=== PATIENT | female | born 1950 | race Caucasian/White ===

== ENCOUNTER 2017-06-17 09:11 | Day surgery (SDC) | payer OTHER ==
[~2017-06-17 09:11] MED LIST: LIDOCAINE HCL 1% MPF SOL ONE; PROPOFOL 500 MG/50 ML EMU IV ONE
[2017-06-17 11:49] VITALS: BP 120/80; PULSE 70; RESP 20; TEMP 97.4; O2SAT 100
== END 2017-06-17 12:09 | disposition home or self-care (01) | DRG 951 ==
LOC: SURG 09:11
PROVIDERS: ATTEND Internal Medicine Gastroenterology
DX: Z12.11 Encounter for screening for malignant neoplasm of colon (principal); D12.2 Benign neoplasm of ascending colon; Z86.010 Personal history of colon polyps; Z80.0 Family history of malignant neoplasm of digestive organs; K57.30 Diverticulosis of large intestine without perforation or abscess without bleeding; K64.8 Other hemorrhoids
CPT/HCPCS: 99001; J2001; J2704

== ENCOUNTER 2018-01-29 11:27 | Outpatient (CLI) | payer MEDICARE, OTHER ==
[2017-06-17 11:49] VITALS: O2SAT 100
== END 2018-01-29 11:28 | disposition home or self-care (01) | DRG 554 ==
LOC: CONVCARE 11:27
PROVIDERS: ATTEND Orthopaedic Surgery
DX: M17.0 Bilateral primary osteoarthritis of knee (principal)
CPT/HCPCS: 73564

== ENCOUNTER 2018-03-12 05:23 | Inpatient (IN) | payer OTHER ==
[2018-03-12] MEDS ORDERED: LACTATED RINGERS 1,000 ML IV ONE (06:00)
[2018-03-12] MEDS: SCOPOLAMINE 1.5MG PATCH TD SCH (06:12)
[2018-03-12] MEDS ORDERED: LACTATED RINGERS 1,000 ML IV SCH (07:00)
[2018-03-12] MEDS ORDERED: SODIUM CHLORIDE 20 ML 20 ML ONE (07:04)
[2018-03-12] MEDS ORDERED: FENTANYL 100MCG/2ML SOL ONE (07:15)
[2018-03-12] MEDS ORDERED: DEXAMETHASONE 20 MG/5 ML (4 MG/ML SOL) ONE (07:15)
[2018-03-12] MEDS ORDERED: ONDANSETRON HCL 4 MG/2 ML SOL ONE (07:15)
[2018-03-12] MEDS ORDERED: MIDAZOLAM 2 MG/2 ML SOL ONE (07:15)
[2018-03-12] MEDS ORDERED: PROPOFOL 500 MG/50 ML EMU IV ONE (07:15)
[2018-03-12] MEDS ORDERED: METOCLOPRAMIDE HYDROCHLORIDE 5 MG/ML SOL ONE (07:15)
[2018-03-12] MEDS: TRANEXAMIC ACID 100 MG/ML SOL ONE ×2 (08:42→10:40)
[2018-03-12] MEDS ORDERED: PHENYLEPHRINE HYDROCHLORIDE 10 MG/ML SOL ONE (08:47)
[2018-03-12] MEDS: BUPIVACAINE LIPOSOME 20 ML SUS ONE ×4 (09:05→11:01)
[2018-03-12] MEDS ORDERED: PROPOFOL 10 MG/ML EMU IV ONE (10:33)
[2018-03-12] MEDS ORDERED: CEFAZOLIN SODIUM 1 GM PDS ONE ×3 (10:51→23:04)
[2018-03-12] MEDS ORDERED: SODIUM CHLORIDE 0.9% 500 ML 500 ML IV PRN (11:02)
[2018-03-12] MEDS ORDERED: ONDANSETRON 4 MG ODT BU PRN (11:02)
[2018-03-12] MEDS ORDERED: FLEET ENEMA PR PRN (11:02)
[2018-03-12] MEDS ORDERED: MORPHINE SULFATE 10 MG/ML SOL IV PRN (11:02)
[2018-03-12] MEDS ORDERED: BISACODYL 10 MG SUP PR PRN (11:02)
[2018-03-12] MEDS ORDERED: ALUMINUM/MAGNESIUM 30 ML SUS PO PRN (11:02)
[2018-03-12] MEDS ORDERED: ONDANSETRON HCL 4 MG/2 ML SOL IV PRN (11:02)
[2018-03-12] MEDS ORDERED: MAGNESIUM HYDROXIDE 30 ML SUS PO PRN (11:02)
[2018-03-12] MEDS ORDERED: DIAZEPAM 5 MG TAB PO PRN (11:02)
[2018-03-12] MEDS ORDERED: DIPHENHYDRAMINE 25 MG CAP PO PRN (11:02)
[2018-03-12] MEDS ORDERED: DEXAMETHASONE SOD PHOS PF 10 MG/ML SOL IJ ONE (11:45)
[2018-03-12] MEDS ORDERED: BUPIVACAINE/EPI 0.25% 50 ML SOL ONE (11:46)
[2018-03-12] MEDS ORDERED: KETOROLAC TROMETHAMINE 30 MG/ML SOL ONE (13:04)
[2018-03-12] MEDS: ACETAMINOPHEN 500 MG 500 MG TAB PO SCH ×3 (14:58→20:38)
[2018-03-12] MEDS: DEXTROSE/SALINE 0.45% 1,000 ML IV SCH ×2 (14:59→23:19)
[2018-03-12] MEDS: SODIUM CHLORIDE 0.9% FLUSH 10 ML SOL IV SCH ×2 (15:54→20:38)
[2018-03-12] MEDS ORDERED: SODIUM CHLORIDE 0.9% 100 ML 100 ML IV ONE ×2 (15:55→23:04)
[2018-03-12] MEDS: CEFAZOLIN SODIUM 1 GM PDS 2 GM in SODIUM CHLORIDE 0.9% 100 ML 100 ML IV SCH (16:12)
[2018-03-12] MEDS: OXYCODONE HYDROCHLORIDE 5 MG TAB PO PRN ×2 (16:36→20:39)
[2018-03-12] MEDS: ATORVASTATIN 10 MG TAB PO SCH (20:38)
[2018-03-12] MEDS: CHOLECALCIFEROL 1,000 IU TAB PO SCH (20:38)
[2018-03-12] MEDS: SENNOSIDES A AND B 8.6 MG TAB PO SCH (20:38)
[2018-03-12] MEDS: CALCIUM CARBONATE 500 MG TAB PO SCH (20:39)
[2018-03-12] MEDS: MAGNESIUM OXIDE 400 MG TAB PO SCH (20:39)
[2018-03-13] MEDS: OXYCODONE HYDROCHLORIDE 5 MG TAB PO PRN ×8 (00:07→22:59)
[2018-03-13] MEDS: CEFAZOLIN SODIUM 1 GM PDS 2 GM in SODIUM CHLORIDE 0.9% 100 ML 100 ML IV SCH (00:07)
[2018-03-13 07:18] LABS: HEMOGLOBIN 9.1 gm/dl (12.0-15.5); MEAN CORPUSCULAR HEMOGLOBIN 25.9 pg (27.0-32.0); MEAN CORPUSCULAR HGB CONC 33.8 gm/dl (32.0-36.0)
[2018-03-13] MEDS: ACETAMINOPHEN 500 MG 500 MG TAB PO SCH ×4 (08:22→20:16)
[2018-03-13] MEDS: SODIUM CHLORIDE 0.9% FLUSH 10 ML SOL IV SCH ×2 (08:22→17:11)
[2018-03-13] MEDS: RIVAROXABAN 10 MG TAB PO SCH (08:22)
[2018-03-13] MEDS: CHOLECALCIFEROL 1,000 IU TAB PO SCH (20:16)
[2018-03-13] MEDS: ATORVASTATIN 10 MG TAB PO SCH (20:16)
[2018-03-13] MEDS: MAGNESIUM OXIDE 400 MG TAB PO SCH (20:16)
[2018-03-13] MEDS: SENNOSIDES A AND B 8.6 MG TAB PO SCH (20:17)
[2018-03-13] MEDS: CALCIUM CARBONATE 500 MG TAB PO SCH (20:17)
[2018-03-13] MEDS: LISINOPRIL 20 MG TAB PO SCH (20:36)
[2018-03-14] MEDS: SODIUM CHLORIDE 0.9% FLUSH 10 ML SOL IV SCH ×3 (00:48→17:06)
[2018-03-14] MEDS: OXYCODONE HYDROCHLORIDE 5 MG TAB PO PRN ×6 (02:25→20:20)
[2018-03-14 07:21] LABS: HEMOGLOBIN 8.4 gm/dl (12.0-15.5); MEAN CORPUSCULAR HEMOGLOBIN 24.6 pg (27.0-32.0); MEAN CORPUSCULAR HGB CONC 31.8 gm/dl (32.0-36.0)
[2018-03-14] MEDS: RIVAROXABAN 10 MG TAB PO SCH (08:46)
[2018-03-14] MEDS: ACETAMINOPHEN 500 MG 500 MG TAB PO SCH ×4 (08:46→20:20)
[2018-03-14] MEDS: SENNOSIDES A AND B 8.6 MG TAB PO SCH (20:20)
[2018-03-14] MEDS: CHOLECALCIFEROL 1,000 IU TAB PO SCH (20:20)
[2018-03-14] MEDS: MAGNESIUM OXIDE 400 MG TAB PO SCH (20:20)
[2018-03-14] MEDS: ATORVASTATIN 10 MG TAB PO SCH (20:21)
[2018-03-14] MEDS: CALCIUM CARBONATE 500 MG TAB PO SCH (20:21)
[2018-03-14] MEDS: LISINOPRIL 20 MG TAB PO SCH (20:44)
[2018-03-15] MEDS: SODIUM CHLORIDE 0.9% FLUSH 10 ML SOL IV SCH ×3 (00:27→16:29)
[2018-03-15] MEDS: OXYCODONE HYDROCHLORIDE 5 MG TAB PO PRN ×5 (00:52→20:41)
[2018-03-15] MEDS: SCOPOLAMINE 1.5MG PATCH TD SCH (06:11)
[2018-03-15 07:17] LABS: HEMOGLOBIN 8.4 gm/dl (12.0-15.5); MEAN CORPUSCULAR HGB CONC 32.3 gm/dl (32.0-36.0)
[2018-03-15] MEDS: ACETAMINOPHEN 500 MG 500 MG TAB PO SCH ×4 (08:28→20:42)
[2018-03-15] MEDS: RIVAROXABAN 10 MG TAB PO SCH (08:28)
[2018-03-15] MEDS ORDERED: POLYETHYLENE GLYCOL 17 GM/1 TBS PDS PO PRN (08:37)
[2018-03-15] MEDS ORDERED: FERROUS GLUCONATE 324 MG TABLET PO SCH (08:45)
[2018-03-15] MEDS: SENNOSIDES A AND B 8.6 MG TAB PO SCH (20:41)
[2018-03-15] MEDS: CALCIUM CARBONATE 500 MG TAB PO SCH (20:42)
[2018-03-15] MEDS: LISINOPRIL 20 MG TAB PO SCH (20:42)
[2018-03-15] MEDS: MAGNESIUM OXIDE 400 MG TAB PO SCH (20:42)
[2018-03-15] MEDS: ATORVASTATIN 10 MG TAB PO SCH (20:42)
[2018-03-15] MEDS: CHOLECALCIFEROL 1,000 IU TAB PO SCH (20:43)
[2018-03-16] MEDS: SODIUM CHLORIDE 0.9% FLUSH 10 ML SOL IV SCH (01:27)
[2018-03-16] MEDS: OXYCODONE HYDROCHLORIDE 5 MG TAB PO PRN ×3 (03:44→14:42)
[2018-03-16 03:48] VITALS: RESP 20
[2018-03-16] MEDS: ACETAMINOPHEN 500 MG 500 MG TAB PO SCH ×2 (08:38→13:16)
[2018-03-16] MEDS: RIVAROXABAN 10 MG TAB PO SCH (08:38)
[2018-03-16] MEDS ORDERED: PNEUMOC 13-VAL CONJ-DIP CRM/PF 0.5 ML SYRINGE IM ONE (09:34)
[2018-03-16 09:50] VITALS: BP 121/72; PULSE 99; TEMP 98.4; O2SAT 95
== END 2018-03-16 16:45 | disposition home or self-care (01) | DRG 462 ==
LOC: ACUTE CARE 05:23
PROVIDERS: ADMIT Orthopaedic Surgery; ATTEND Orthopaedic Surgery
PROC: 0SRD0J9 Replacement of Left Knee Joint with Synthetic Substitute, Cemented, Open Approach (ICD-10-PCS; 2018-03-12)
PROC: 0SRC0J9 Replacement of Right Knee Joint with Synthetic Substitute, Cemented, Open Approach (ICD-10-PCS; 2018-03-12)
PROC: F01ZCFZ Transfer Assessment using Assistive, Adaptive, Supportive or Protective Equipment (ICD-10-PCS; 2018-03-12)
PROC: F01ZBFZ Bed Mobility Assessment using Assistive, Adaptive, Supportive or Protective Equipment (ICD-10-PCS; principal; 2018-03-12 08:00)
PROC: F01K5ZZ Range of Motion and Joint Integrity Assessment of Musculoskeletal System - Upper Back / Upper Extremity (ICD-10-PCS; 2018-03-13)
DX: M17.0 Bilateral primary osteoarthritis of knee (principal); D64.9 Anemia, unspecified; E78.5 Hyperlipidemia, unspecified; I10 Essential (primary) hypertension; Z96.653 Presence of artificial knee joint, bilateral
CPT/HCPCS: 36415; 73560; 85018; 85027; 90670; 94150; 99070; J0690; J1100; J1885; J2250; J2405; J2765; J3010; A6232; A9270-GY; G0008; J2370; J2704; J3490; Q3014

== ENCOUNTER 2018-04-30 10:38 | Outpatient (CLI) | payer OTHER ==
[2018-03-16 09:50] VITALS: O2SAT 95
== END 2018-04-30 10:39 | disposition home or self-care (01) | DRG 561 ==
LOC: CONVCARE 10:38
PROVIDERS: ATTEND Orthopaedic Surgery
DX: Z47.1 Aftercare following joint replacement surgery (principal); Z96.653 Presence of artificial knee joint, bilateral
CPT/HCPCS: 73562

== ENCOUNTER 2019-03-11 10:14 | Outpatient (CLI) | payer OTHER ==
[2018-03-16 09:50] VITALS: O2SAT 95
== END 2019-03-11 10:15 | disposition home or self-care (01) | DRG 561 ==
LOC: CONVCARE 10:14
PROVIDERS: ATTEND Orthopaedic Surgery
DX: Z47.1 Aftercare following joint replacement surgery (principal); Z96.653 Presence of artificial knee joint, bilateral
CPT/HCPCS: 73562